=== PATIENT | male | born 1965 | race Caucasian/White ===

== ENCOUNTER 2023-08-27 18:13 | Emergency (ER) | payer MEDICAID ==
[~2023-08-27] VITALS: Ht 170.2 cm; Wt 75.0 kg
[2023-08-27 18:29] VITALS: TEMP 98.2; O2SAT 98
[2023-08-27] MEDS ORDERED: NAP5EC MT (22:42)
[2023-08-27] MEDS ORDERED: TOPUD MT (22:42)
[2023-08-27] MEDS ORDERED: CARI250T MT (22:42)
[2023-08-27 23:30] VITALS: BP 142/86; PULSE 85; RESP 18
[2023-08-27] MEDS: HYDROCODONE/ACETAMINOPHEN 5/325MG TABLET PO ONE (23:30)
[2023-08-27] MEDS: IBUPROFEN 800MG TABLET PO ONE (23:30)
== END 2023-08-27 23:57 | disposition home or self-care (01) ==
LOC: ER 18:13
DX: M54.50 Low back pain, unspecified (principal); Z90.49 Acquired absence of other specified parts of digestive tract
CPT/HCPCS: 72100; 99283